=== PATIENT | female | born 1960 | race Caucasian/White ===

== ENCOUNTER 2016-12-29 17:17 | Emergency (ER) | payer MEDICAID ==
[~2016-12-29] VITALS: Ht 157.5 cm; Wt 73.5 kg
[2016-12-29 17:21] VITALS: Ht 157.5 cm; Wt 73.5 kg
[2016-12-29] MEDS ORDERED: KETOROLAC 30 MG INJ IM STA (19:26)
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
--- NOTE | 2016-12-30 01:16 | RADRPT ---
PROCEDURE: XR Foot. CLINICAL INDICATION: Pain with reference marker directed towards the lateral malleolus. TECHNIQUE: AP, lateral and oblique views of the right foot was obtained. The images were reviewed on a PACS workstation. COMPARISON: None. FINDINGS: The bones of the foot appear intact, with no evidence of fracture, dislocation, or subluxation. Bone mineralization is normal. No significant soft tissue swelling is seen. IMPRESSION: No acute fracture. RPTAT: [facility] Physician Scarlett Date Time Electronically viewed and signed by Physician Scarlett on 12/30/2016 01:16 RS/
--- NOTE | 2016-12-30 01:18 | RADRPT ---
PROCEDURE: XR Elbow. CLINICAL INDICATION: Pain. TECHNIQUE: Three views of the left elbow. COMPARISON: None available. FINDINGS: The anterior fat pad is visible, but not elevated. The posterior fat pad is not seen. The anterior humeral and radiocapitellar lines are normal. No fracture or dislocation is identified. The joint spaces are preserved. There is no significant soft tissue swelling. IMPRESSION: 1. No fracture or dislocation of the left elbow. RPTAT: HTAR .Wilner Yee MD, Date Time Electronically viewed and signed by .Wilner Yee MD, on 12/30/2016 01:17 .R/
--- NOTE | 2016-12-30 01:19 | RADRPT ---
PROCEDURE: US DVT. CLINICAL INDICATION: Right lower extremity pain. TECHNIQUE: Multiple longitudinal and transverse images of the right lower extremity veins were obt ained with smith scale and color Doppler imaging. 2D grayscale measurements with compression, color Doppler flow, and augmentation was performed. The calf veins were interrogated as well. COMPARISON: No prior studies are available for comparison. FINDINGS: The right common femoral, femoral and popliteal veins are normally compressible throughout. Color f low demonstrates normal filling of the vessels. Normal waveforms are visualized and there is normal response to augmentation. The calf veins are visualized and are equally unremarkable. IMPRESSION: 1. No right lower extremity DVT. RPTAT: HTAR .Wilner Yee MD, Date Time Electronically viewed and signed by .Wilner Yee MD, on 12/30/2016 01:19 .R/
[2016-12-30 03:30] VITALS: BP 132/77; PULSE 70; RESP 18; TEMP 98
== END 2016-12-30 05:56 | disposition left against medical advice (07) ==
LOC: FTE 17:17
DX: M79.604 Pain in right leg (principal)
CPT/HCPCS: 73080; 73610; 73630; 93971; J1885; 96372

== ENCOUNTER 2017-02-24 20:00 | Emergency (ER) | payer MEDICAID ==
[~2017-02-24] VITALS: Ht 160 cm; Wt 73.5 kg
[2017-02-24 20:09] VITALS: Ht 160 cm; Wt 73.5 kg
[2017-02-24] MEDS ORDERED: KETOROLAC 30 MG INJ IM STA (21:23)
[2017-02-24] MEDS ORDERED: HYDROCODONE/APAP (5/325) TAB PO ONE (21:30)
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
[2017-02-24] MEDS ORDERED: TRAM50TA2 PO (23:14)
[2017-02-24] MEDS ORDERED: IBUP-1542 PO (23:14)
[2017-02-24 23:54] VITALS: BP 135/70; PULSE 84; RESP 18
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
== END 2017-02-24 23:56 | disposition home or self-care (01) ==
LOC: FTE 20:00
DX: S49.92XA Unspecified injury of left shoulder and upper arm, initial encounter (principal); S39.92XA Unspecified injury of lower back, initial encounter; Y04.8XXA Assault by other bodily force, initial encounter
CPT/HCPCS: 72100; 96372; J1885; Z7502